=== PATIENT | male | born 2000 | race Caucasian/White ===

== ENCOUNTER 2023-09-22 09:41 | Emergency (ER) | payer OTHER, SELFPAY ==
[2023-09-22] VITALS (11 sets, daily range): BP systolic 121–174; BP diastolic 55–99; PULSE 74–100; RESP 12–21; TEMP 36.7–37.1; O2SAT 97–100; BMI 25.8
--- NOTE | 2023-09-22 09:41 | ECG_ITS ---
APPROVED REPORT Exam: Resting ECG HR:89 bpm ECG Measurements Heart Rate 89 AXES MS 112 P 78 QRSd 83 QRS 92 QT 341 T 42 QTc 388 Conclusion SINUS RHYTHM Electronically signed by : STEFANI ENCARNACION, 09/23/2023 06:58:31
--- NOTE | 2023-09-22 09:43 | PC.NURSE ---
Dr. Yeh at [facility] for pt eval
--- NOTE | 2023-09-22 09:48 | XR_ITS ---
FINAL REPORT CLINICAL HISTORY: cp right sided after vomiting COMPARISON: None FINDINGS: A single portable view of the chest was obtained. The heart size and pulmonary vascularity are within normal limits. The mediastinum is within normal limits. No acute pulmonary abnormality is identified. The bony thorax is intact. IMPRESSION: No active cardiopulmonary disease. Reviewed, Interpreted and Dictated by Balwinder Quigley III, MD Transcribed by Kellen Colin Authenticated and [facility]
[2023-09-22 09:56] LABS: Basophils # 0.1 K/mm3 (0-0.2); Basophils % 0.7 % (0.1-2.0); Eosinophils # 0.2 K/mm3 (0.0-0.4); Eosinophils % 1.3 % (0.1-12.0); Hematocrit 51.3 % (42.0-52.0); Hemoglobin 17.6 g/dL (14.1-18.0); Lymphocytes # 0.9 K/mm3 (0.7-4.5); Lymphocytes % 5.2 % (10-50); Mean Corpuscular HGB Conc 34.4 g/dL (31.8-35.4); Mean Corpuscular Hemoglobin 29.6 pg (27.0-31.2); Mean Corpuscular Volume 86.2 fl (80-94); Mean Platelet Volume 7.5 fl (7.4-10.4); Monocytes # 1.1 K/mm3 (0.1-1.0); Monocytes % 6.6 % (1.7-9.3); Neutrophils # 14.1 K/mm3 (1.8-7.8); Neutrophils % 86.3 % (37.0-80.0); Platelet Count 268 K/mm3 (142-424); Red Blood Count 5.95 M/mm3 (4.60-6.20); Red Cell Distribution Width 13.4 % (11.5-17.5); White Blood Count 16.4 K/mm3 (4.8-10.8)
[2023-09-22 09:58] LABS: Chloride 104 mmol/L (98-107); Potassium 4.6 mmoL/L (3.5-5.1); Sodium 140 mmol/L (136-145)
[2023-09-22 09:59] LABS: MANUAL DIFFERENTIAL MANUAL DIFFERENTIAL (MANUAL DIFF)
[2023-09-22 10:01] LABS: Alanine Aminotransferase 46 U/L (12-78); Albumin Level 5.1 g/dl (3.5-5.0); Albumin/Globulin Ratio 1.7 (1.1-1.8); Alkaline Phosphatase 77 U/L (38-126); Anion Gap 10.6 mEq/L (5-15); Aspartate Amino Transferase 45 U/L (17-59); Blood Urea Nitrogen 16 mg/dl (9-20); Calcium 10.2 mg/dl (8.4-10.2); Carbon Dioxide 30 mmol/L (22.0-30.0); Creatinine Clearance Estimated 121 mL/min (50-200); Estimated Glomerular Filt Rate 83 ml/min (>60); GFR (African American) 100 ML/MIN (>60); Glucose 129 mg/dl (74-100); Lipase 59 U/L (23-300); Total Protein,Serum 8.1 g/dl (6.3-8.2)
--- NOTE | 2023-09-22 10:04 | PC.NURSE ---
RAD at for CXR
[2023-09-22] MEDS: BELLADONNA ALKALOIDS 60 ML ML PO (10:05)
[2023-09-22] MEDS: SODIUM CHLORIDE 0.9% 10ML VIAL 8 ML IV (10:05)
[2023-09-22] MEDS: LACTATED RINGERS 1000ML 1,000 ML 999 ML IV (10:05)
[2023-09-22] MEDS: FAMOTIDINE 20MG/2ML VIAL 20 MG IV (10:05)
--- NOTE | 2023-09-22 10:13 | HMH.EDCP ---
Discharge Plan Disposition Patient Disposition: Home, Self-Care Chief Complaint: Chest Pain Prescriptions Prescriptions: No Action buspirone 15 mg Tablet 15 mg PO BID Referrals Follow up/Referrals: Provider,Referral, MD [Primary Care Provider] - See instructions Clinical Impressions Clinical Impression: Abdominal pain, epigastric, Vomiting Discharge ED Provider: Cody Yeh General Chief Complaint: Chest Pain Stated Complaint: Chest Pain Time Seen by Provider: 09/22/23 09:44 Mode of Arrival: Ambulatory Source of Information: Patient Limitations: No Limitations Description of Symptoms (Recalled from ER Triage Doc. by RN): pt reports substernal chest pain that started about a hour ago, woke him up from sleeping, denies any heart history, states he woke up around 4am with n/v/d, drank 3 beers last night but that's it, denies cough, sob, congestion, or any other symptoms, denies blood in vomit or stool, states he is anxious at this time History of Present Illness HPI narrative: Is a 22-year-old male with history of anxiety presenting with chest pain. Patient states that started this morning. Patient started having epigastric/lower chest wall pain and then started vomiting. Its yellow. Also have diarrhea. States that he did have a couple drinks on 09/20, but nothing in excess. Pain does not radiate, not associated with fevers or chills or shortness of breath. Vomit is nonbloody, nonbilious, and diarrhea is without blood. No sick contacts he knows of. Please note that above description of symptoms, in this electronic medical record under categorization of recalled from ER triage doctor by RN are reflective of an initial nursing assessment, however, is not reflective of my full history and physical exam that was personally taken and clarified. Consequentially, this preceding description of symptoms, which may include the patient's categorized chief complaint in the EMR, do not reflect my personal clinical impression, and the ultimate description of history of present illness and patient stated complaints should be deferred to this section of the note. Unless stated otherwise or congruent with this section of the note, additional signs, symptoms, or incongruence should be interpreted as inaccurate with my clinical impression. Related Data Home Medications Medication Instructions Recorded Confirmed buspirone 15 mg tablet 15 mg PO BID 09/22/23 09/22/23 Allergies Allergy/AdvReac Type Severity Reaction Status Date / Time No Known Allergies Allergy Verified 09/22/23 09:49 [facility] Disclaimer: The information contained in this section may have been updated after the patient was seen, as this information can be updated by other users. Social History Smoking Status: Never smoker alcohol intake: never current occupational status: employed Travel in the last 8 weeks: None ROS Obtained: Yes All systems reviewed & no additional complaints except as documented Physical Exam General General appearance: alert Neck Neck exam: Present trachea midline Chest Chest inspection: Present normal inspection and symmetric chest wall rise Respiratory Respiratory exam: Present normal lung sounds bilaterally; Absent respiratory distress, wheezes, stridor, accessory muscle use or prolonged expiratory phase Cardiovascular Cardiovascular exam: Present regular rate and normal rhythm Abdominal Exam Abdominal exam: Present soft and tenderness; Absent distention, guarding, rebound or rigidity Abdominal tenderness: Present epigastrium and mild Extremities Exam Extremities exam: Absent edema Neurological Exam Neurological exam: Present alert, oriented X3 and CN II-XII intact Skin Skin exam: Present warm and dry; Absent cyanosis, diaphoresis or pallor HEART Score HEART Score HEART Score assessment performed?: Yes HEART Score: 0 Critical Care Critical Care Time Critical Care Time: No Medical Decision Making Medical Records Medical records reviewed: Yes I reviewed the patient's medical records. Farhna Inquiry Pt receiving controlled substance: No Farhan was queried for this patient: No Vital Signs Vital Signs: 09/22/23 09:42 09/22/23 09:48 09/22/23 10:01 Temperature 98.7 F Temperature Source Oral Pulse Rate 93 H 98 H Pulse Rate [Left Radial] 93 H Respiratory Rate 18 13 Blood Pressure 147/70 H Blood Pressure [Right Arm] 174/99 H Blood Pressure Mean 95 Blood Pressure Mean [Right Arm] 124 Blood Pressure Source Blood Pressure Source [Right Arm] Automatic Cuff Blood Pressure Position Blood Pressure Position [Right Arm] Sitting 02 Sat by Pulse Oximetry 100 100 Oxygen Delivery Method Room Air 09/22/23 10:30 09/22/23 11:00 09/22/23 11:30 Temperature Temperature Source Pulse Rate 98 H 74 83 Pulse Rate [Left Radial] Respiratory Rate 12 21 21 Blood Pressure 134/79 122/60 121/73 Blood Pressure [Right Arm] Blood Pressure Mean 93 Blood Pressure Mean [Right Arm] Blood Pressure Source Blood Pressure Source [Right Arm] Blood Pressure Position Blood Pressure Position [Right Arm] 02 Sat by Pulse Oximetry 100 97 100 Oxygen Delivery Method Room Air Room Air 09/22/23 13:04 Temperature Temperature Source Pulse Rate 83 Pulse Rate [Left Radial] Respiratory Rate 18 Blood Pressure 138/76 Blood Pressure [Right Arm] Blood Pressure Mean Blood Pressure Mean [Right Arm] Blood Pressure Source Automatic Cuff Blood Pressure Source [Right Arm] Blood Pressure Position Supine Blood Pressure Position [Right Arm] 02 Sat by Pulse Oximetry 99 Oxygen Delivery Method Room Air Lab Data Labs: Lab Results 09/22/23 09:45: WBC 16.4 H, RBC 5.95, Hgb 17.6, Hct 51.3, MCV 86.2, MCH 29.6, MCHC 34.4, RDW 13.4, Plt Count 268, MPV 7.5, Neut % (Auto) 86.3 H, Lymph % (Auto) 5.2 L, [place] % (Auto) 6.6, Eos % (Auto) 1.3, Baso % (Auto) 0.7, Neut # (Auto) 14.1 H, Lymph # (Auto) 0.9, [place] # (Auto) 1.1 H, Eos # (Auto) 0.2, Baso # (Auto) 0.1, Total Counted 100, Neutrophils % (Manual) 94 H, Lymphocytes % (Manual) 5 L, Monocytes % (Manual) 1 L, Platelet Estimate Normal, RBC Morphology Normal, D-Dimer 0.30, Sodium 140, Potassium 4.6, Chloride 104, Carbon Dioxide 30, Anion Gap 10.6, BUN 16, Creatinine 1.10, Estimated Creat Clear 121, Estimated GFR 83, Est GFR ( Amer) 100, Glucose 129 H, Calcium 10.2, Total Bilirubin 1.0, AST 45, ALT 46, Alkaline Phosphatase 77, Troponin I < 0.01, Total Protein 8.1, Albumin 5.1 H, Globulin 3.0, Albumin/Globulin Ratio 1.7, Lipase 59 09/22/23 09:45 09/22/23 09:45 Response Orders (Tests/Meds): ED MEDICATIONS Generic Name Dose Route Start Last Admin Trade Name Freq PRN Reason Stop Dose Admin Sodium Chloride 8 ml 09/22/23 09:48 09/22/23 10:05 Sodium Chloride 0.9% 10ml Vial IV 10/22/23 09:47 8 ml NEEDED PRN Administration dilute pepcid Sodium Chloride 10 ml 09/22/23 10:34 Sodium Chloride 0.9% 10ml Vial IV 10/22/23 10:33 NEEDED PRN to Dilute Lorazepam inj Discontinued Medications Generic Name Dose Route Start Last Admin Trade Name Freq PRN Reason Stop Dose Admin Acetaminophen 1,000 mg 09/22/23 12:46 09/22/23 13:00 Acetaminophen 1,000mg/100ml Vial IV 09/22/23 12:47 1,000 mg ONCE ONE Administration Belladonna Alkaloids 60 ml 09/22/23 09:48 09/22/23 10:05 Belladonna Alkaloids 60 Ml Ml PO 09/22/23 09:49 60 ml ONCE ONE Administration Famotidine 20 mg 09/22/23 09:48 09/22/23 10:05 Famotidine 20mg/2ml Vial IV 09/22/23 09:49 20 mg ONCE ONE Administration Hydroxyzine Pamoate 50 mg 09/22/23 10:11 09/22/23 10:52 Hydroxyzine Pamoate 25mg Capsule PO 09/22/23 10:12 Not Given ONCE ONE Lactated Ringer's 1,000 mls @ 999 mls/hr 09/22/23 09:48 09/22/23 10:05 Lactated Ringer's 1000 Ml Bag IV 09/22/23 10:48 999 mls/hr .Q1H1M ONE Administration Ketorolac Tromethamine 15 mg 09/22/23 12:46 09/22/23 13:00 Ketorolac 30mg/Ml Vial IV 09/22/23 12:47 15 mg ONCE ONE Administration Lorazepam 0.5 mg 09/22/23 10:34 09/22/23 10:43 Lorazepam 2mg/Ml Vial IV 09/22/23 10:35 0.5 mg ONCE ONE Administration Ondansetron HCl 4 mg 09/22/23 10:11 09/22/23 10:52 Ondansetron 4mg/2ml Vial IV 09/22/23 10:12 Not Given ONCE ONE Ondansetron HCl 4 mg 09/22/23 12:48 09/22/23 13:00 Ondansetron 4mg/2ml Vial IV 09/22/23 12:49 4 mg ONCE ONE Administration ORDERS Category Date Time Status CXR --portable [XR chest portable] Stat Exams 09/22/23 09:48 Completed CBC w/Auto Diff [Complete Blood Count Auto Diff] Stat Lab 09/22/23 09:45 Completed CMP [Comprehensive Metabolic Panel] Stat Lab 09/22/23 09:45 Completed D-Dimer Stat Lab 09/22/23 09:45 Completed Lipase Stat Lab 09/22/23 09:45 Completed Trop I [Troponin I] Stat Lab 09/22/23 09:45 Completed Troponin I Q3H Lab 09/22/23 13:16 Received Troponin I Q3H Lab 09/22/23 16:00 Ordered MDM Narrative Medical Decision Narrative: Is a 22-year-old male with history of anxiety presenting with chest pain. Patient states that started this morning. Patient started having epigastric/lower chest wall pain and then started vomiting. Its yellow. Also have diarrhea. States that he did have a couple drinks on 09/20, but nothing in excess. Pain does not radiate, not associated with fevers or chills or shortness of breath. Vomit is nonbloody, nonbilious, and diarrhea is without blood. No sick contacts he knows of. It should be noted that patient has , which is currently not at goal and complicates care. History was obtained via conversation with patient and significant other. On arrival, patient hemodynamically stable, alert, oriented x4, appropriate, GCS 15, moving all extremities spontaneously, pupils equal and reactive to light. Full physical exam performed and significant for anxious appearing male no acute distress. Cardiopulmonary exam within normal limits. No murmurs, gallops, rubs. Lungs are clear to auscultation bilaterally anterior and posteriorly. Pulses equal and symmetric. Patient grossly neurologically intact. Differential includes anxiety, gastritis, PUD, pancreatitis, intercostal muscle strain with vomiting, gastroenteritis, among others. Patient was given GI cocktail, Pepcid, LR bolus for symptomatic management and correction of underlying abnormalities. Patient feeling nauseated shortly after initial evaluation, was attempted to be given Zofran 4 mg IV and 50 mg hydroxyzine p.o., but declined Workup independently interpreted and significant for nonactionable CBC or chemistry. Mild leukocytosis, but overall nonactionable in the setting of acute vomiting syndrome, most likely stress degranulation. Kidney function normal, electrolytes normal, troponin negative, lipase negative. Chest x-ray without acute cardiopulmonary airspace disease. See radiology read for full review of final results. Independent interpretation of EKG shows sinus rhythm 89 beats a minute no ST or T wave changes concerning for acute ischemia. [place] normal. RI, QRS, QT intervals within normal limits. Patient placed on continuous cardiac monitoring and continuous pulse ox with initial blood pressure 174/100, heart rate 93, saturation 100% on room air. Heart score 0. Patient continuing to have intermittent chest pains, but also extremely anxious and declining multiple medications due to concern for potential reaction to medications, although he has not had anaphylaxis to any in the past. Dimer negative. Declined Zofran, was given 0.5 mg Ativan IV. Continue to be nauseated, so given 4 mg Zofran IV with significant improvement. Repeat EKG similar to the first, no ischemic change On reevaluation, patient resting comfortably in bed.Given patient presentation, workup, history, this most likely represents gastritis. Because patient at baseline without signs or symptoms of clinical decompensation, deemed appropriate for discharge. Results were relayed to patient who voiced understanding and were agreeable to outpatient management and follow up. I discussed my clinical impression with patient and answered all questions. At this time, the evidence for any other entities in the differential is insufficient to warrant any further testing or ED observation. This was explained as well. Advisory was given that persistent or worsening symptoms require further evaluation. I confirmed the understanding of this discussion.
--- NOTE | 2023-09-22 10:16 | PC.NURSE ---
pt anxious at this time and declined prescribed medication per MD. MD ok'd to hold medication at this time.
--- NOTE | 2023-09-22 10:22 | PC.NURSE ---
went in to give patient his meds and he was very anxious, states to give him a minute. educated that the vistaril would help him but he still opted to hold on it. pt is doing deep breathing exercises at this time. er md aware.
[2023-09-22 10:23] LABS: Troponin I < 0.01 ng/ml (0.00-0.034)
[2023-09-22 10:38] LABS: Lymphocytes % 5 % (10-50); Monocytes % 1 % (2-9); Neutrophils % 94 % (42-76); Total Cells Counted 100
[2023-09-22 10:41] LABS: Platelet Estimate Normal; RBC Morphology Normal
[2023-09-22] MEDS: LORazepam 2MG/ML VIAL 0.5 MG IV (10:43)
--- NOTE | 2023-09-22 12:45 | ECG_ITS ---
APPROVED REPORT Exam: Resting ECG HR:97 bpm ECG Measurements Heart Rate 97 AXES MO 136 P 76 QRSd 78 QRS 88 QT 330 T 42 QTc 384 Conclusion SINUS RHYTHM Electronically signed by : STEFANI ENCARNACION, 09/23/2023 07:15:08
[2023-09-22] MEDS: KETOROLAC 30MG/ML VIAL 15 MG IV (13:00)
[2023-09-22] MEDS: ACETAMINOPHEN 1,000MG/100ML VIAL 1000 MG IV (13:00)
[2023-09-22] MEDS: ONDANSETRON 4MG/2ML VIAL 4 MG IV (13:00)
--- NOTE | 2023-09-22 13:45 | PC.NURSE ---
pt resting in bed. significant other at bedside. bed in lowest position. call light within reach.
[2023-09-22 13:56] LABS: Troponin I < 0.01 ng/ml (0.00-0.034)
== END 2023-09-22 13:56 | disposition home or self-care (01) ==
PROVIDERS: Emergency Provider Emergency Medicine
DX: R10.13 Epigastric pain (principal); R11.2 Nausea with vomiting, unspecified
CPT/HCPCS: 71045; 80053; 83690; 84484; 85007; 85025; 85378; 93005; 96361; 96374; 96375; 96376; 99285; J0131; J2405